=== PATIENT | female | born 1970 ===

== ENCOUNTER 2024-12-10 12:40 | Day surgery (SDC) | payer BC ==
[2024-12-10 15:28] VITALS: BP 109/55
[2024-12-10] MEDS ORDERED: DULO60 PO (16:15)
[2024-12-10] MEDS ORDERED: EUTHYROX125 MCG PO (16:15)
[2024-12-10] MEDS ORDERED: AMPYRA10 MG PO (16:15)
[2024-12-10] MEDS ORDERED: MODA200 PO (16:16)
[2024-12-10] MEDS ORDERED: LOSA50 PO (16:16)
[2024-12-10] MEDS ORDERED: HYDR1TAB94 PO (16:17)
[2024-12-10] MEDS ORDERED: LATUDA PO (16:17)
[2024-12-10] MEDS ORDERED: Crestor40 MG PO (16:17)
[2024-12-10] MEDS ORDERED: BACL20 PO (16:18)
[2024-12-10] MEDS ORDERED: ZYRTEC10 M2 PO (16:18)
[2024-12-10] MEDS ORDERED: TURMERIC500 M2 PO (16:18)
[2024-12-10] MEDS ORDERED: PREG50 PO (16:20)
== END 2024-12-10 16:10 | disposition home or self-care (01) ==
LOC: ATC 12:40
DX: G35 Multiple sclerosis (principal); I10 Essential (primary) hypertension; E78.00 Pure hypercholesterolemia, unspecified; E89.0 Postprocedural hypothyroidism; Z79.890 Hormone replacement therapy; Z79.899 Other long term (current) drug therapy; Z88.1 Allergy status to other antibiotic agents; Z91.030 Bee allergy status
CPT/HCPCS: 96365; J2919

== ENCOUNTER 2024-12-11 04:31 | Day surgery (SDC) | payer BC ==
[~2024-12-11 04:31] MED LIST: AMPYRA10 MG PO; BACL20 PO; Crestor40 MG PO; DULO60 PO; EUTHYROX125 MCG PO; HYDR1TAB94 PO; LATUDA PO; LOSARTAN-HCTZ1 EACH PO; METHYLPREDNISOLONE SOD SUCC IV SCH; MODA200 PO; NS IV SCH; PREG50 PO; TURMERIC500 M2 PO; ZYRTEC10 M2 PO
[2024-12-11 15:17] VITALS: BP 114/39
== END 2024-12-11 16:11 | disposition home or self-care (01) ==
LOC: ATC 04:31
DX: G35 Multiple sclerosis (principal); I10 Essential (primary) hypertension; E78.5 Hyperlipidemia, unspecified; Z88.1 Allergy status to other antibiotic agents; Z91.030 Bee allergy status; Z79.899 Other long term (current) drug therapy
CPT/HCPCS: 96365; J2919

== ENCOUNTER 2024-12-12 03:00 | Day surgery (SDC) | payer BC ==
[~2024-12-12 03:00] MED LIST changes: -METHYLPREDNISOLONE SOD SUCC IV SCH; -NS IV SCH
[2024-12-12] MEDS ORDERED: NS IV SCH (06:00)
[2024-12-12] MEDS ORDERED: METHYLPREDNISOLONE SOD SUCC IV SCH (06:00)
[2024-12-12 15:33] VITALS: BP 109/53
== END 2024-12-12 16:20 | disposition home or self-care (01) ==
LOC: ATC 03:00
DX: G35 Multiple sclerosis (principal); E78.5 Hyperlipidemia, unspecified; I10 Essential (primary) hypertension; Z79.899 Other long term (current) drug therapy; Z91.030 Bee allergy status; Z88.8 Allergy status to other drugs, medicaments and biological substances
CPT/HCPCS: 96365; J2919

== ENCOUNTER 2024-12-14 16:23 | Inpatient (IN) | payer BC ==
[~2024-12-14] VITALS: Ht 160 cm; Wt 77.0 kg
[~2024-12-14 16:23] MED LIST changes: +Enoxaparin 40 MG/0.4 ML SYR SC SCH
[2024-12-14 17:03] LABS: BASOPHILS ABSOLUTE AUTO 0.04 K/mm3 (0.00-0.23); BASOPHILS PERCENT AUTO 0 % (0-2); EOSINOPHILS ABSOLUTE AUTO 0.04 K/mm3 (0.00-0.68); EOSINOPHILS PERCENT AUTO 0 % (0-6); Hematocrit 35.2 % (33.0-51.0); IMMATURE GRAN ABSOLUTE AUTO 0.15 K/mm3 (0.00-0.10); IMMATURE GRAN PERCENT AUTO 1 % (0-1); LYMPHOCYTES ABSOLUTE AUTO 0.54 K/mm3 (0.84-5.20); LYMPHOCYTES PERCENT AUTO 3 % (21-46); MONOCYTES ABSOLUTE AUTO 0.75 K/mm3 (0.16-1.47); MONOCYTES PERCENT AUTO 4 % (4-13); Mean Corpuscular HGB 30.8 pg (26.0-34.0); Mean Corpuscular HGB Conc 34.1 g/dL (31.5-36.5); Mean Corpuscular Volume 91 fL (80-100); Mean Platelet Volume 10.3 fL (9.1-12.4); NEUTROPHILS ABSOLUTE AUTO 19.56 K/mm3 (1.96-9.15); NEUTROPHILS PERCENT AUTO 93 % (41-73); Platelet Count 186 K/mm3 (150-400); RDW Coefficient Variation 14.8 % (11.7-14.2); RDW Standard Deviation 49.2 fL (35.1-46.3); Red Blood Cell Count 3.89 M/mm3 (3.80-5.20); White Blood Cell Count 21.08 K/mm3 (4.00-11.30)
[2024-12-14] MEDS ORDERED: Lactated Ringer's 1,000 ML IV SCH (17:05)
[2024-12-14 17:13] LABS: Magnesium, Blood 2.1 mg/dL (1.6-2.4)
[2024-12-14 17:14] LABS: Albumin, Blood 2.3 g/dL (3.4-5.0); Albumin/Globulin Ratio 0.5 (0.8-1.8); Bilirubin, Total 0.5 mg/dL (0.1-1.0); Bun/Creatinine Ratio 28.6 (12.0-20.0); Calcium, Blood 9.5 mg/dL (8.5-10.1); Creatinine, Blood 1.92 mg/dL (0.40-1.00); Globulin, Blood 4.4 g/dL (2.2-4.0); Phosphorus, Blood 3.8 mg/dL (2.5-4.9); Potassium, Blood 3.1 mmol/L (3.5-5.5); Total Protein, Blood 6.7 g/dL (6.4-8.2)
[2024-12-14 17:41] LABS: Source, Urine Clean Catch
[2024-12-14 17:51] LABS: Appearance, Urine Clear (Clear); Bilirubin, Urine Neg (Neg); Blood, Urine 5+ (Neg); Color, Urine Yellow (P-Yellow); Glucose Qualitative, Urine Neg (Neg); Ketones, Urine Neg (Neg); Leukocyte Esterase, Urine 3+ (Neg); Nitrite, Urine Pos (Neg); Protein, Urine 3+ (Neg); Urobilinogen, Urine NORM (Normal)
[2024-12-14 18:04] LABS: Bacteria Many /hpf; Squamous Epithelial Cells Few /hpf (Few)
[2024-12-14] MEDS ORDERED: CefTRIAXone Sodium 1,000 MG in NS 100 ML IV ONE (18:45)
[2024-12-14] MEDS ORDERED: METHYLPREDNISOLONE SOD SUCC IV ONE (18:50)
[2024-12-14] MEDS ORDERED: DEXTROSE 5% IV ONE (18:50)
[2024-12-14 22:56] VITALS: BP 110/55
[2024-12-14] MEDS ORDERED: Ondansetron HCl 2 MG / ML 2ML Vial IV PRN (23:35)
[2024-12-14] MEDS ORDERED: NS 1,000 ML IV ONE (23:35)
[2024-12-14] MEDS ORDERED: FLU VACC TS2024-25(6MOS UP)/PF 45 MCG/0.5 ML SYRINGE IM ONE (23:35)
[2024-12-14] MEDS ORDERED: Potassium Chl 20MEQ/Water100ML 100 ML IV STA (23:43)
[2024-12-14] MEDS ORDERED: LevoFLOXacin 750 MG/D5W 150ML 150 ML IV SCH (23:45)
[2024-12-15] MEDS ORDERED: NS 500 ML IV ONE (00:42)
[2024-12-15] MEDS ORDERED: NS 1,000 ML BAG IR SCH (00:50)
[2024-12-15] MEDS ORDERED: NS 250 ML IV PRN (01:10)
[2024-12-15 02:47] VITALS: BP 107/64
[2024-12-15] MEDS ORDERED: OxyCODONE HCL 5 MG TAB PO PRN (05:35)
[2024-12-15 06:30] LABS: BASOPHILS ABSOLUTE AUTO 0.02 K/mm3 (0.00-0.23); BASOPHILS PERCENT AUTO 0 % (0-2); EOSINOPHILS ABSOLUTE AUTO 0.01 K/mm3 (0.00-0.68); EOSINOPHILS PERCENT AUTO 0 % (0-6); Hematocrit 33.2 % (33.0-51.0); IMMATURE GRAN ABSOLUTE AUTO 0.14 K/mm3 (0.00-0.10); IMMATURE GRAN PERCENT AUTO 1 % (0-1); LYMPHOCYTES PERCENT AUTO 4 % (21-46); MONOCYTES ABSOLUTE AUTO 0.25 K/mm3 (0.16-1.47); MONOCYTES PERCENT AUTO 2 % (4-13); Mean Corpuscular HGB 30.6 pg (26.0-34.0); Mean Corpuscular HGB Conc 33.1 g/dL (31.5-36.5); Mean Corpuscular Volume 93 fL (80-100); Mean Platelet Volume 10.8 fL (9.1-12.4); NEUTROPHILS ABSOLUTE AUTO 15.37 K/mm3 (1.96-9.15); NEUTROPHILS PERCENT AUTO 94 % (41-73); Platelet Count 161 K/mm3 (150-400); RDW Coefficient Variation 14.8 % (11.7-14.2); RDW Standard Deviation 50.7 fL (35.1-46.3); Red Blood Cell Count 3.59 M/mm3 (3.80-5.20); White Blood Cell Count 16.39 K/mm3 (4.00-11.30)
[2024-12-15 06:56] LABS: Free Thyroxine 1.09 ng/dL (0.70-1.60)
[2024-12-15 07:00] LABS: Albumin, Blood 2.1 g/dL (3.4-5.0); Albumin/Globulin Ratio 0.5 (0.8-1.8); Bilirubin, Total 0.3 mg/dL (0.1-1.0); Bun/Creatinine Ratio 30.3 (12.0-20.0); Creatinine, Blood 1.65 mg/dL (0.40-1.00); Globulin, Blood 4.2 g/dL (2.2-4.0); Potassium, Blood 3.6 mmol/L (3.5-5.5); Thyroid Stimulating Hormone 0.33 uIU/mL (0.360-4.800); Total Protein, Blood 6.3 g/dL (6.4-8.2)
[2024-12-15] MEDS ORDERED: NS 500 ML IV PRN (07:00)
[2024-12-15 07:11] VITALS: BP 110/54
[2024-12-15] MEDS ORDERED: FentaNYL Citrate 50 MCG/ML 2 ML Injection IV PRN (08:10)
[2024-12-15] MEDS ORDERED: DULoxetine HCL 60 MG Capsule DR PO SCH (09:00)
[2024-12-15] MEDS ORDERED: Pregabalin 50 MG Capsule PO SCH (09:00)
[2024-12-15] MEDS ORDERED: Rosuvastatin Calcium 10 MG Tab PO SCH (09:00)
[2024-12-15] MEDS ORDERED: MethylPREDNISolone Sod Succ 1,000 MG in Dextrose 5% 50 ML IV SCH (09:00)
[2024-12-15] MEDS ORDERED: Misc. Tablet PO SCH (09:00)
[2024-12-15] MEDS ORDERED: Baclofen 10 MG Tab PO SCH (09:00)
[2024-12-15] MEDS ORDERED: Levothyroxine Sodium 0.125 MG Tab PO ONE (10:26)
[2024-12-15] MEDS ORDERED: DULO30 PO (10:35)
[2024-12-15] MEDS ORDERED: VITAMIN D31000 UNI1 PO (10:44)
[2024-12-15] MEDS ORDERED: ALEN70 PO (10:46)
[2024-12-15] MEDS ORDERED: Modafinil 200 MG Tab PO SCH (11:00)
[2024-12-15 11:12] VITALS: BP 122/49
[2024-12-15] MEDS ORDERED: HYDROcodone 5-APAP 325 TAB PO PRN (12:25)
[2024-12-15 13:21] LABS: Influenza A, PCR NEGATIVE (NEGATIVE); Influenza B, PCR NEGATIVE (NEGATIVE); Resp Syncytial Virus, PCR NEGATIVE (NEGATIVE); SARS-Cov-2 (COVID-19) PCR, MMC NEGATIVE (NEGATIVE)
[2024-12-15 16:07] VITALS: BP 131/69
--- NOTE | 2024-12-15 18:25 | NUR ---
SHIFT SUMMARY PATIENT ORIENTEDX4 TODAY, SHE DOES GET SOME WORDS CONFUSED OCCAISIONALLY LIKE NEUROLOGIST VS INCLUSION SPECIAL EDUCATOR BUT CLEARS QUICKLY, OCCASIONAL SHORT TERM FORGETFUL REGARDING MEDICATION DISCUSSIONS TODAY, REMINDDS HER QUICKLY THAT "WE ALREADY TALKED ABOUT THAT". MEDICATIONS RECONCILLED WITH BOTTLES, PATIENT AND . DR MARIN NOTIFIED. SHE IS EATING HER MEALS IN BED AT THIS TIME. BED IN LOW POSITION, CALL LIGHT IN REACH. SHE IS ABLE TO MAKE HER NEEDS KNOWN.
[2024-12-15] MEDS ORDERED: Polyethylene Glycol 3350 17 gm PO PRN (19:00)
[2024-12-15] MEDS ORDERED: Polyethylene Glycol 3350 17 gm PO ONE (19:00)
[2024-12-15] MEDS ORDERED: DULoxetine HCL 30 MG Cap DR PO ONE (19:30)
[2024-12-15 19:45] VITALS: BP 148/63
[2024-12-15] MEDS ORDERED: LURASIDONE 40 MG TABLET PO SCH (21:00)
[2024-12-15] MEDS ORDERED: DALFAMPRIDINE 10 MG PO SCH (21:00)
[2024-12-15 23:30] VITALS: BP 131/56
[2024-12-16 03:56] VITALS: BP 145/72
[2024-12-16 04:49] LABS: BASOPHILS ABSOLUTE AUTO 0.04 K/mm3 (0.00-0.23); BASOPHILS PERCENT AUTO 0 % (0-2); EOSINOPHILS ABSOLUTE AUTO 0.04 K/mm3 (0.00-0.68); EOSINOPHILS PERCENT AUTO 0 % (0-6); Hematocrit 31.7 % (33.0-51.0); Hemoglobin 10.5 g/dL (11.5-16.0); IMMATURE GRAN ABSOLUTE AUTO 0.37 K/mm3 (0.00-0.10); IMMATURE GRAN PERCENT AUTO 2 % (0-1); LYMPHOCYTES ABSOLUTE AUTO 0.88 K/mm3 (0.84-5.20); LYMPHOCYTES PERCENT AUTO 4 % (21-46); MONOCYTES ABSOLUTE AUTO 0.82 K/mm3 (0.16-1.47); MONOCYTES PERCENT AUTO 4 % (4-13); Mean Corpuscular HGB 30.4 pg (26.0-34.0); Mean Corpuscular HGB Conc 33.1 g/dL (31.5-36.5); Mean Corpuscular Volume 92 fL (80-100); Mean Platelet Volume 10.8 fL (9.1-12.4); NEUTROPHILS ABSOLUTE AUTO 18.45 K/mm3 (1.96-9.15); NEUTROPHILS PERCENT AUTO 90 % (41-73); Platelet Count 221 K/mm3 (150-400); RDW Coefficient Variation 15.1 % (11.7-14.2); RDW Standard Deviation 50.4 fL (35.1-46.3); Red Blood Cell Count 3.45 M/mm3 (3.80-5.20)
[2024-12-16 05:13] LABS: Albumin, Blood 2.2 g/dL (3.4-5.0); Albumin/Globulin Ratio 0.5 (0.8-1.8); Bilirubin, Total 0.2 mg/dL (0.1-1.0); Bun/Creatinine Ratio 33.7 (12.0-20.0); Calcium, Blood 9.2 mg/dL (8.5-10.1); Creatinine, Blood 1.96 mg/dL (0.40-1.00); Globulin, Blood 4.2 g/dL (2.2-4.0); Total Protein, Blood 6.4 g/dL (6.4-8.2)
--- NOTE | 2024-12-16 05:16 | NUR ---
SHIFT SUMMARY PATIENT IS ALERT AND ORIENTED. PATIENT HAS HAD NO ACUTE EVENTS THIS SHIFT. PATIENT HAS HAD NO COMPLAINTS OF PAIN, NAUSEA, SOB OR VOMITTING THIS SHIFT. VITAL SIGNS REVIEWED. PATIENT HAS BEEN INSISTENT ON HAVING MORALEZ PUT IN THIS SHIFT, PATIENT HAS BEEN EDUCATED ON MORALEZ RISKS. PATIENT HAS HAD DECENT URINE OUTPUT THIS SHIFT. PATIENT HAS BEEN WEARING 2L O2 WHILE SLEEPING. BED IN LOCKED AND LOWEST POSITION. CALL LIGHT IN PLACE.
[2024-12-16] MEDS ORDERED: Levothyroxine Sodium 0.125 MG Tab PO SCH (06:00)
[2024-12-16 07:47] VITALS: BP 133/68
[2024-12-16] MEDS ORDERED: Potassium Chloride 20 MEQ TabCR PO ONE (08:00)
[2024-12-16] MEDS ORDERED: Potassium Chloride 20 MEQ TabCR PO SCH (08:00)
[2024-12-16] MEDS ORDERED: Loratadine 10 MG Tab PO SCH (09:00)
[2024-12-16] MEDS ORDERED: Cholecalciferol 1000 Unit Tablet (=25MCG) PO SCH (12:00)
[2024-12-16] MEDS ORDERED: DALFAMPRIDINE 10 MG PO SCH (14:00)
[2024-12-16 15:43] VITALS: BP 133/75
[2024-12-16] MEDS ORDERED: Rosuvastatin Calcium 10 MG Tab PO SCH (18:00)
[2024-12-16] MEDS ORDERED: DULoxetine HCL 30 MG Cap DR PO SCH (18:00)
--- NOTE | 2024-12-16 19:29 | NUR ---
SHIFT SUMMARY: PT A&O X4. PLEASANT AND COOPERATIVE WITH CARE. PHYSICAL THERAPY COMPLETED THIS SHIFT. PT SB ASSIST c FWW AND GB. PLAN FOR PT TO RECEIVE IV ABX OVERNIGHT AND SLEEP STUDY. NEW IV PLACED IN R. HAND D/T CLOT AND UNABLE TO FLUSH IN L. HAND. CALL LIGHT IN REACH. BED IN LOWEST POSITION.
[2024-12-16 20:03] VITALS: BP 138/75
[2024-12-17 02:21] VITALS: BP 144/95
--- NOTE | 2024-12-17 03:45 | NUR ---
SHIFT SUMMARY ADMITTED FOR PNEUMONIA/UTI/SEPSIS. FULL CODE. ALSO POSSIBLE MS EXACERBATION. IV ANTIB RX ARE SCHEDULED. IV STEROIDS ARE ALSO SCHEDULED. SHE IS A&O X4, INDEPENDENT, ON RA DURING AM - 2 LPM O2 @ HS. SLEEP STUDY IN PROGRESS THIS SHIFT. REGULAR DIET.
[2024-12-17] MEDS ORDERED: Potassium Chloride 20 MEQ TabCR PO ONE (06:17)
[2024-12-17 07:26] VITALS: BP 142/80
[2024-12-17 11:24] LABS: BASOPHILS ABSOLUTE AUTO 0.04 K/mm3 (0.00-0.23); BASOPHILS PERCENT AUTO 0 % (0-2); EOSINOPHILS PERCENT AUTO 0 % (0-6); Hematocrit 33.3 % (33.0-51.0); Hemoglobin 10.9 g/dL (11.5-16.0); IMMATURE GRAN ABSOLUTE AUTO 0.52 K/mm3 (0.00-0.10); IMMATURE GRAN PERCENT AUTO 3 % (0-1); LYMPHOCYTES ABSOLUTE AUTO 1.17 K/mm3 (0.84-5.20); LYMPHOCYTES PERCENT AUTO 6 % (21-46); MONOCYTES ABSOLUTE AUTO 0.68 K/mm3 (0.16-1.47); MONOCYTES PERCENT AUTO 4 % (4-13); Mean Corpuscular HGB Conc 32.7 g/dL (31.5-36.5); Mean Corpuscular Volume 95 fL (80-100); Mean Platelet Volume 10.9 fL (9.1-12.4); NEUTROPHILS ABSOLUTE AUTO 16.13 K/mm3 (1.96-9.15); NEUTROPHILS PERCENT AUTO 87 % (41-73); Platelet Count 266 K/mm3 (150-400); RDW Coefficient Variation 15.2 % (11.7-14.2); RDW Standard Deviation 52.8 fL (35.1-46.3); Red Blood Cell Count 3.52 M/mm3 (3.80-5.20); White Blood Cell Count 18.54 K/mm3 (4.00-11.30)
[2024-12-17 12:04] LABS: Albumin, Blood 2.4 g/dL (3.4-5.0); Albumin/Globulin Ratio 0.6 (0.8-1.8); Bilirubin, Total 0.2 mg/dL (0.1-1.0); Bun/Creatinine Ratio 36.8 (12.0-20.0); Calcium, Blood 9.6 mg/dL (8.5-10.1); Creatinine, Blood 1.82 mg/dL (0.40-1.00); Potassium, Blood 3.7 mmol/L (3.5-5.5); Total Protein, Blood 6.4 g/dL (6.4-8.2)
[2024-12-17] MEDS ORDERED: LEVO750 PO (13:28)
--- NOTE | 2024-12-17 14:56 | NUR ---
DISCHARGED HOME, INSTRUCTIONS GIVEN TO PATIENT AND , BOTH STATED UNDERSTANDING OF MEDICATIONS, FOLLOW UPS, AND ESTABLISHING CARE. BOTH DENIED FURTHER QUESTIONS
== END 2024-12-17 15:04 | disposition home health service (06) | DRG 871 ==
LOC: ER 16:23 → ERHOLD 20:43 → MEDS 20:43
PROVIDERS: Hospitalist; Student in an Organized Health Care Education/Training Program; ADMIT Internal Medicine
DX: A41.9 Sepsis, unspecified organism (principal); J18.9 Pneumonia, unspecified organism; N39.0 Urinary tract infection, site not specified; N17.9 Acute kidney failure, unspecified; E05.00 Thyrotoxicosis with diffuse goiter without thyrotoxic crisis or storm; G35 Multiple sclerosis; E87.6 Hypokalemia; E78.5 Hyperlipidemia, unspecified; G62.9 Polyneuropathy, unspecified; N18.32 Chronic kidney disease, stage 3b; I12.9 Hypertensive chronic kidney disease with stage 1 through stage 4 chronic kidney disease, or unspecified chronic kidney disease; M79.7 Fibromyalgia; F32.A Depression, unspecified; Z88.8 Allergy status to other drugs, medicaments and biological substances; Z91.030 Bee allergy status; Z79.890 Hormone replacement therapy; Z79.891 Long term (current) use of opiate analgesic; Z79.899 Other long term (current) drug therapy; Z28.21 Immunization not carried out because of patient refusal
CPT/HCPCS: 0241U; 36415; 71045; 80053; 81001; 83605; 83735; 83880; 84100; 84439; 84443; 84484; 85025; 87040; 93005; 93010; 94762; 96361; 96365; 96367; 97110; 97116; 97162; 99285-25; A9270; J0696; J1650; J1956; J2919; J3010; J3480; J7040; J7120

== ENCOUNTER → 2024-12-23 | Outpatient (CLI) | payer BC ==
[~2024-12-23] MED LIST changes: +ALEN70 PO; +DULO30 PO; -Enoxaparin 40 MG/0.4 ML SYR SC SCH; +LEVO750 PO; +VITAMIN D31000 UNI1 PO
[2024-12-23 13:31] LABS: Appearance, Urine Clear (Clear); Bilirubin, Urine Neg (Neg); Blood, Urine 1+ (Neg); Color, Urine Yellow (P-Yellow); Glucose Qualitative, Urine Neg (Neg); Ketones, Urine Neg (Neg); Leukocyte Esterase, Urine Neg (Neg); Nitrite, Urine Neg (Neg); Protein, Urine 2+ (Neg); Urobilinogen, Urine NORM (Normal)
[2024-12-23 13:41] LABS: Bacteria Rare /hpf; Red Blood Cells, Urine 0-2 /hpf (0-2); Squamous Epithelial Cells Few /hpf (Few); White Blood Cells, Urine 0-2 /hpf (0-5)
== END ==
LOC: LAB SHORT 08:45 → LAB 08:45 → LAB FUT 12-22 12:40
PROVIDERS: Hospitalist
DX: N39.0 Urinary tract infection, site not specified (principal); A49.9 Bacterial infection, unspecified
CPT/HCPCS: 81001